=== PATIENT | male | born 1995 | race Caucasian/White ===

== ENCOUNTER → 2021-04-14 16:45 | Outpatient (BNVA) | payer OTHER, SELFPAY | PROVIDERS: Family Provider Family Medicine; Visit Provider Family Medicine | DX: F41.1 Generalized anxiety disorder (principal); F41.0 Panic disorder [episodic paroxysmal anxiety]; Z76.89 Persons encountering health services in other specified circumstances | CPT/HCPCS: 80053; 84439; 84443; 85025 ==